=== PATIENT | male | born 1990 | race African-American/Black ===

== ENCOUNTER 2017-05-24 13:03 | Emergency (ER) | payer MEDICAID ==
[~2017-05-24] VITALS: Ht 177.8 cm; Wt 74.8 kg
[2017-05-24 13:41] VITALS: BP 138/92
[2017-05-24 13:50] LABS: Basophils # (auto) 0 uL; Basophils % (auto) 0.4 % (0.0-2.0); Eosinophils # (auto) 0 uL; Eosinophils % (auto) 0.3 % (0.0-7.0); Hematocrit 45.2 % (41.0-53.0); Hemoglobin 15.6 g/dL (13.5-17.5); Lymphocytes # (auto) 1.9 uL; Lymphocytes % (auto) 30.3 % (10.0-50.0); Mean Corpuscular Hemoglobin 33.1 pg (28.0-32.0); Mean Corpuscular Hgb Conc. 34.4 g/dL (32.0-36.0); Mean Platelet Volume 8.1 fL (6.9-10.8); Monocytes # (auto) 0.7 uL; Monocytes % (auto) 10.7 % (0.0-12.0); Neutrophils # (auto) 3.6 uL; Neutrophils % (auto) 58.3 % (37.0-80.0); Nucleated Red Blood Cells % 0.1 %; Platelet Count (auto) 212 10^3/uL (140-450); Red Cell Distribution Width 12.6 % (11.8-14.3); White Blood Cell 6.1 10^3/uL (4.4-10.8)
[2017-05-24 14:06] LABS: Albumin 4.4 g/dL (3.4-5.0); BUN/Creatinine Ratio 10.1; Bilirubin, Total 1.3 mg/dL (0.2-1.0); Total Protein 8.7 g/dL (6.4-8.2)
== END 2017-05-24 14:54 | disposition home or self-care (01) ==
LOC: ER 13:12
DX: G51.0 Bell's palsy (principal); K04.7 Periapical abscess without sinus; Z83.3 Family history of diabetes mellitus
CPT/HCPCS: 36415; 70450; 80053; 85025